=== PATIENT | male | born 1990 | race Caucasian/White ===

== ENCOUNTER → 2024-07-26 | Outpatient (CLI) | payer OTHER ==
--- NOTE | 2024-07-26 12:22 | HMCIMG ---
Exam Type: CT LOW EXT W/O CONTRAST Clinical Information: RT KNEE PAIN,Sprain of anterior cruciate ligament of right knee, initial en Comparison: None Findings: No acute fractures or dislocations. Mild degenerative changes of the medial and lateral compartments. Bony changes consistent with a history of status post ACL repair. Unfortunately, the prepared ACL cannot be well evaluated with CT. The posterior cruciate ligament is seen and appears anatomically intact. IMPRESSION: Postoperative changes as noted.
== END | disposition home or self-care (01) ==
LOC: RAH 10:38
PROVIDERS: ATTEND Student in an Organized Health Care Education/Training Program
DX: S83.511A Sprain of anterior cruciate ligament of right knee, initial encounter (principal); M17.11 Unilateral primary osteoarthritis, right knee; X58.XXXA Exposure to other specified factors, initial encounter; Y93.89 Activity, other specified; Y92.89 Other specified places as the place of occurrence of the external cause; Y99.8 Other external cause status; Z98.890 Other specified postprocedural states
CPT/HCPCS: 73700